=== PATIENT | male | born 1970 | race Caucasian/White ===

== ENCOUNTER 2019-02-26 17:16 | Emergency (ER) | payer BC, OTHER ==
[2019-02-26 17:40] LABS: Basophils # (A) 0.1 k/uL (0-0.2); Basophils % (A) 1 %; Eosinophils # (A) 0.1 k/uL (0-0.7); Eosinophils % (A) 1 %; HCT 45.3 % (39.0-53.0); Lymphocytes % (A) 32 %; MCH 29.4 pg (25.0-35.0); MCHC 33.2 g/dL (31.0-37.0); MCV 88.6 fL (80.0-100.0); Mean Platelet Volume 7.8; Monocytes # (A) 0.7 k/uL (0-1.0); Monocytes % (A) 7 %; Neutrophils % (A) 55 %; Platelet Count 287 k/uL (150-450); RBC 5.11 m/uL (4.30-5.90); WBC 9.2 k/uL (3.8-10.6)
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
[2019-02-26 17:46] LABS: Albumin 4.2 g/dL (3.5-5.0); Potassium 3.8 mmol/L (3.5-5.1); Total Bilirubin 0.5 mg/dL (0.2-1.3); Total Protein 6.8 g/dL (6.3-8.2)
[2019-02-26 17:49] LABS: INR 0.9 (<1.2); Partial Thromboplastin Time 22.7 sec (22.0-30.0)
--- NOTE | 2019-02-26 17:51 | XR ---
EXAMINATION TYPE: XR pelvis AP view DATE OF EXAM: 02/26/2019 COMPARISON: NONE HISTORY: Pain TECHNIQUE: Single view FINDINGS: Pelvic ring is intact. Proximal femurs and hip joints are intact. Sacroiliac joints appear normal. IMPRESSION: Negative exam. No fracture.
--- NOTE | 2019-02-26 17:52 | XR ---
EXAMINATION TYPE: XR chest 1V DATE OF EXAM: 02/26/2019 COMPARISON: NONE HISTORY: Pain TECHNIQUE: Single frontal view of the chest is obtained. FINDINGS: Heart and mediastinum are normal. Lungs are clear of consolidation. Trachea is midline. Th ere is no sign of pleural effusion or pneumothorax. Bony thorax appears intact. IMPRESSION: No active cardiopulmonary disease.
[2019-02-26 18:00] LABS: Creatine Kinase 321 U/L (55-170)
[2019-02-26] MEDS ORDERED: fentaNYL (PF) 50 MCG/ML 5 ML AMP IVP STA ×2 (18:10→18:44)
[2019-02-26 18:13] LABS: Creatine Kinase MB 4.5 ng/mL (0.0-2.4); Troponin I <0.012 ng/mL (0.000-0.034)
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
[2019-02-26 18:27] LABS: ABG Base Excess -4.7 mmol/L; ABG HCO3 21 mmol/L (21-25); ABG PCO2 38 mmHg (35-45); ABG PH 7.35 (7.35-7.45); ABG TCO2 22 mmol/L (19-24); Allen Test Performed? Yes
[2019-02-26 18:29] LABS: ABG PO2 55 mmHg (83-108)
[2019-02-26] MEDS ORDERED: DILTIAZEM 5 MG/ML 5 ML VIAL IVP STA (18:33)
[2019-02-26 18:37] VITALS: BP 143/66; PULSE 158; RESP 30; TEMP 97.8
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
[2019-02-26] MEDS ORDERED: DILTIAZEM 125 MG in SODIUM CHLORIDE 0.9% 100 ML IV SCH (18:45)
--- NOTE | 2019-02-26 19:05 | XR ---
EXAMINATION TYPE: XR ankle limited bilateral DATE OF EXAM: 02/26/2019 COMPARISON: NONE HISTORY: Pain TECHNIQUE: 4 views FINDINGS: There is soft tissue swelling around the right ankle. I see no fracture nor dislocation. Th ere is some calcification at the medial malleolus of the right ankle. Subtalar joints are intact. IMPRESSION: Soft tissue swelling on the right side. No fracture seen. Negative left ankle exam.
--- NOTE | 2019-02-26 19:06 | XR ---
EXAMINATION TYPE: XR foot limited bilateral DATE OF EXAM: 02/26/2019 COMPARISON: NONE HISTORY: Pain TECHNIQUE: 4 views FINDINGS: 2 views of each foot were obtained. I see no fracture nor dislocation. Metatarsals are inta ct. There are no erosions. There is soft tissue swelling around the right ankle. There is mild spurri ng of the anterior and posterior malleolus of the right ankle. IMPRESSION: Right-sided soft tissue swelling. No fracture.
--- NOTE | 2019-02-26 19:14 | XR ---
EXAMINATION TYPE: XR tibia fibula bilateral DATE OF EXAM: 02/26/2019 COMPARISON: NONE HISTORY: Pain TECHNIQUE: 4 views each tibia and fibula FINDINGS: There is a vertical fracture without displacement through the lateral tibial condyle of the left knee. There is left knee joint effusion. The ankle joints show no fracture. There is no disloca tion. The right knee appears intact.. IMPRESSION: Vertical fracture of the left tibia lateral condyle.
--- NOTE | 2019-02-26 19:15 | XR ---
EXAMINATION TYPE: XR Femur LT 1 View DATE OF EXAM: 02/26/2019 COMPARISON: NONE HISTORY: Pain TECHNIQUE: 2 views FINDINGS: Femur appears intact. I see no femoral fracture. Hip joint space is normal. There is a vert ical fracture of the lateral tibial condyle of the left knee. IMPRESSION: Lateral tibial condyle fracture of the left knee. No femoral fracture.
--- NOTE | 2019-02-26 19:15 | XR ---
EXAMINATION TYPE: XR Femur RT 1 View DATE OF EXAM: 02/26/2019 COMPARISON: NONE HISTORY: Pain TECHNIQUE: 2 views FINDINGS: Knee joint and hip joint appear intact. I see no fracture nor dislocation. IMPRESSION: Negative right femur exam.
[2019-02-26] MEDS ORDERED: fentaNYL (PF) 50 MCG/ML 2 ML AMP IVP PRN (19:18)
--- NOTE | 2019-02-26 19:56 | XR ---
EXAMINATION TYPE: XR humerus bilateral DATE OF EXAM: 02/26/2019 COMPARISON: NONE HISTORY: Pain TECHNIQUE: 5 views FINDINGS: The left and right humerus appear intact. I see no fracture nor dislocation. There is no si gn of elbow joint effusion. There are no pathologic calcifications. IMPRESSION: Negative bilateral humerus exam.
--- NOTE | 2019-02-26 19:57 | XR ---
EXAMINATION TYPE: XR hand limited bilateral DATE OF EXAM: 02/26/2019 COMPARISON: NONE HISTORY: Pain TECHNIQUE: 4 views FINDINGS: There is some deformity of the left fifth metacarpal consistent with old healed fracture. I see no acute fracture nor dislocation. Joint spaces are normal. IMPRESSION: No acute abnormality of the left and right hand.
== END 2019-02-26 20:30 | disposition other institution (70) ==
LOC: EC 17:16
DX: S82.122A Displaced fracture of lateral condyle of left tibia, initial encounter for closed fracture (principal); S06.0X0A Concussion without loss of consciousness, initial encounter; I48.91 Unspecified atrial fibrillation; F10.129 Alcohol abuse with intoxication, unspecified; S27.329A Contusion of lung, unspecified, initial encounter; S00.03XA Contusion of scalp, initial encounter; S40.812A Abrasion of left upper arm, initial encounter; S40.811A Abrasion of right upper arm, initial encounter; S80.811A Abrasion, right lower leg, initial encounter; S91.112A Laceration without foreign body of left great toe without damage to nail, initial encounter; S91.115A Laceration without foreign body of left lesser toe(s) without damage to nail, initial encounter; S30.811A Abrasion of abdominal wall, initial encounter; V23.4XXA Motorcycle driver injured in collision with car, pick-up truck or van in traffic accident, initial encounter; Y92.410 Unspecified street and highway as the place of occurrence of the external cause
CPT/HCPCS: 99291; 96365; 96367; 96375 ×2; 96376 ×2; 36415; 36600; 86900; 86901; 80053; 82150; 82550; 82553; 82805; 83605; 83690; 84484; 85025; 85610; 85730; 86850; 80320; 73060; 73590; 73600; 73620; 73120; 72170; 73551 ×2; 71045; 72125; 70450; 71260; 74177; J0690; J3010 ×2; Q9967